=== PATIENT | female | born 1960 | race Caucasian/White ===

== ENCOUNTER 2018-02-06 09:55 | Emergency (ER) | payer OTHER, SELFPAY ==
--- NOTE | 2018-02-06 10:33 | RAD REPORT ---
EXAM DESCRIPTION: RAD - Knee Right 3 View - 02/06/2018 10:24 am CLINICAL HISTORY: Pain and swelling. COMPARISON: None. 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 On the oblique view, the re is a lucency seen involving the tibial plateau laterally. This is not confirmed on other projectio ns, however, is somewhat suspicious for hairline fracture, although artifact is possible. Small supra patellar joint effusion is present. Consider followup CT or MR imaging of the knee for further evalua tion.
--- NOTE | 2018-02-06 10:38 | ER ---
Nurse's Notes [facility] Name: Perlita Simons Age: 57 yrs Sex: Female : 1960 Arrival Date: 02/06/2018 Time: 09:58 Bed 18 Private MD: Romero Sheets S Diagnosis: Sprain of unspecified site of right knee Presentation: 02/06 10:01 Presenting complaint: Patient states: I was mowing yesterday and twisted my right knee, la1 pt ambulatory with limping gait. Transition of care: patient was not received from another setting of care. Onset of symptoms was February 06, 2018. Care prior to arrival: None. 10:01 Method Of Arrival: Ambulatory la1 10:01 Acuity: MILLICENT 4 la1 Historical: - Allergies: 10:02 Morphine; la1 - PMHx: 10:02 Back pain; Depression; Hypertension; insomnia; Migraines; la1 - Immunization history:: Adult Immunizations up to date. - Social history:: Smoking status: Patient/guardian denies using tobacco. Screenin:05 Abuse screen: Denies threats or abuse. Nutritional screening: No deficits noted. ae1 Tuberculosis screening: No symptoms or risk factors identified. Fall Risk None identified. No fall in past 12 months (0 pts). No secondary diagnosis (0 pts). No IV (0 pts). Ambulatory Aid- None/Bed Rest/Nurse Assist (0 pts). Gait- Normal/Bed Rest/Wheelchair (0 pts) Mental Status- Oriented to own ability (0 pts). Assessment: 10:15 General: Appears in no apparent distress. uncomfortable, obese, Behavior is calm, ae1 cooperative. Pain: Complains of pain in lateral aspect of right knee, posterior aspect of right knee, medial aspect of right knee and right knee. Pain: Aggravated by increased activity, weight bearing. Neuro: Level of Consciousness is awake, alert, obeys commands, Oriented to person, place, time, situation. Cardiovascular: Patient's skin is warm and dry. Respiratory: Airway is patent Respiratory effort is even, unlabored, Respiratory pattern is regular, symmetrical. GI: No signs and/or symptoms were reported involving the gastrointestinal system. : No signs and/or symptoms were reported regarding the genitourinary system. EENT: No signs and/or symptoms were reported regarding the EENT system. Derm: Skin is normal. Musculoskeletal: Swelling present in right knee. Vital Signs: 10:02 BP 94 / 57; Pulse 61; Resp 19; Temp 98.3(O); Pulse Ox 100% on R/A; Weight 104.33 kg; la1 Height 5 ft. 3 in. (160.02 cm); 10:44 BP 127 / 71; Pulse 58; Resp 17; Pulse Ox 98% on R/A; mh5 10:02 Body Mass Index 40.74 (104.33 kg, 160.02 cm) la1 ED Course: 09:58 Patient arrived in ED. mr 09:58 Romero Sheets MD is Private Physician. mr 10:01 Triage completed. la1 10:02 Arm band placed on left wrist. la1 10:04 Kika Heller FNP-C is [facility]. kb 10:04 Manuel Hernandez MD is Attending Physician. kb 10:08 John Cox, WILTON is Primary Nurse. ae1 10:14 X-ray completed. Portable x-ray completed in exam room. Patient tolerated procedure sw well. 10:15 Bed in low position. Call light in reach. Side rails up X 1. Pulse ox on. NIBP on. ae1 10:17 Knee Right 3 View XRAY In Process Unspecified. EDMS 10:58 Crutch training done. Knee immobilizer applied on right knee. 5 11:06 No provider procedures requiring assistance completed. Patient did not have IV access ae1 during this emergency room visit. Administered Medications: No medications were administered Outcome: 10:38 Discharge ordered by . kb 11:06 Discharged to home via wheelchair, with crutches provided ae1 11:06 Condition: stable 11:06 Discharge instructions given to patient, Instructed on discharge instructions, follow up and referral plans. medication usage, Demonstrated understanding of instructions, follow-up care, Prescriptions given X 1. 11:07 Patient left the ED. ae1 Signatures: Dispatcher [employer] EDMS Kika Heller FNP-C FNP-Iris Ivey Rios Freeman RN RN la1 Savannah Ortiz Andrea, WILTON RN ae1 Iris Dubon [facility]
--- NOTE | 2018-02-06 10:38 | EDPHYS ---
Physician Documentation [facility] Name: Perlita Simons Age: 57 yrs Sex: Female : 1960 Arrival Date: 02/06/2018 Time: 09:58 Bed 18 Private MD: Romero Sheets S ED Physician Manuel Hernandez HPI: 02/06 10:21 This 57 yrs old Female presents to ER via Ambulatory with complaints of Knee kb Pain. 10:21 The patient presents with pain, that is acute. The complaints affect the right knee. kb Context: The problem was sustained at home, outdoors, resulted from twisting of the extremity, mowing, the patient can fully bear weight, the patient is able to ambulate. Onset: The symptoms/episode began/occurred yesterday. Modifying factors: The symptoms are alleviated by nothing. the symptoms are aggravated by movement, weight bearing, bending knee. Associated signs and symptoms: The patient has no apparent associated signs or symptoms. Treatment prior to arrival includes: no previous treatment. Severity of symptoms: At their worst the symptoms were moderate, in the emergency department the symptoms are unchanged. The patient has not experienced similar symptoms in the past. The patient has not recently seen a physician. Historical: - Allergies: 10:02 Morphine; la1 - PMHx: 10:02 Back pain; Depression; Hypertension; insomnia; Migraines; la1 - Immunization history:: Adult Immunizations up to date. - Social history:: Smoking status: Patient/guardian denies using tobacco. ROS: 10:21 Constitutional: Negative for fever, chills, and weight loss, Cardiovascular: Negative kb for chest pain, palpitations, and edema, Respiratory: Negative for shortness of breath, cough, wheezing, and pleuritic chest pain, Abdomen/GI: Negative for abdominal pain, nausea, vomiting, diarrhea, and constipation, Skin: Negative for injury, rash, and discoloration, Neuro: Negative for headache, weakness, numbness, tingling, and seizure. 10:21 MS/extremity: Positive for pain, of the right knee. Exam: 10:20 Constitutional: This is a well developed, well nourished patient who is awake, alert, kb and in no acute distress. Head/Face: Normocephalic, atraumatic. Chest/axilla: Normal chest wall appearance and motion. Nontender with no deformity. No lesions are appreciated. Cardiovascular: Regular rate and rhythm with a normal S1 and S2. No gallops, murmurs, or rubs. Normal PMI, no JVD. No pulse deficits. Respiratory: Lungs have equal breath sounds bilaterally, clear to auscultation and percussion. No rales, rhonchi or wheezes noted. No increased work of breathing, no retractions or nasal flaring. Abdomen/GI: Soft, non-tender, with normal bowel sounds. No distension or tympany. No guarding or rebound. No evidence of tenderness throughout. Skin: Warm, dry with normal turgor. Normal color with no rashes, no lesions, and no evidence of cellulitis. Neuro: Awake and alert, GCS 15, oriented to person, place, time, and situation. Cranial nerves II-XII grossly intact. Motor strength 5/5 in all extremities. Sensory grossly intact. Cerebellar exam normal. Normal gait. 10:20 Musculoskeletal/extremity: Extremities: grossly normal except: noted in the right knee: pain, ROM: intact in all extremities, Circulation is intact in all extremities. Sensation intact. Weight bearing: able to fully bear weight. Vital Signs: 10:02 BP 94 / 57; Pulse 61; Resp 19; Temp 98.3(O); Pulse Ox 100% on R/A; Weight 104.33 kg; la1 Height 5 ft. 3 in. (160.02 cm); 10:44 BP 127 / 71; Pulse 58; Resp 17; Pulse Ox 98% on R/A; mh5 10:02 Body Mass Index 40.74 (104.33 kg, 160.02 cm) la1 MDM: 10:04 Patient medically screened. kb 10:20 Data reviewed: vital signs, nurses notes. Data interpreted: Pulse oximetry: on room air kb is 100 %. Interpretation: normal. 10:21 Counseling: I had a detailed discussion with the patient and/or guardian regarding: the kb historical points, exam findings, and any diagnostic results supporting the discharge/admit diagnosis, radiology results, the need for outpatient follow up, a orthopedic surgeon, to return to the emergency department if symptoms worsen or persist or if there are any questions or concerns that arise at home. 10:39 ED course: Pt did not have any trauma to knee. Not tender to distal aspect of knee. kb Tenderness to proximal aspect of knee only. Educated to follow up with ortho for possible hairline fracture noted by radiologist. . 02/06 10:04 Order name: Knee Right 3 View XRAY; Complete Time: 10:34 kb 02/06 10:37 Order name: Knee Immobilizer; Complete Time: 10:52 kb 02/06 10:37 Order name: Crutches; Complete Time: 10:52 kb Administered Medications: No medications were administered Disposition: 15:23 Co-signature as Attending Physician, Manuel Hernandez MD I agree with the assessment and wa plan of care. Disposition: 02/06/18 10:38 Discharged to Home. Impression: Sprain of unspecified site of right knee. - Condition is Stable. - Discharge Instructions: Knee Sprain, [id number]. - Prescriptions for Diclofenac Sodium 75 mg Oral Tablet, Delayed Release (E.C.) - take 1 tablet by ORAL route 2 times per day As needed; 30 tablet. - Medication Reconciliation Form, Thank You Letter, Antibiotic Education, Prescription Opioid Use form. - Follow up: Emergency Department; When: As needed; Reason: Worsening of condition. Follow up: Private Physician; When: 2 - 3 days; Reason: Recheck today's complaints, Continuance of care, Re-evaluation by your physician. Signatures: Dispatcher [employer] EDKika Rodriguez, DIVYA-C CHIEF JUVENILE [employer]ATION OFFICER-CkRios Stokes RN RN la1 John Cox RN RN ae1 Manuel Hernandez MD MD wa Corrections: (The following items were deleted from the chart) 10:40 10:39 ED course: Pt did not have any trauma to knee. Not tender to distal aspect of kb knee. Tenderness to proximal aspect of knee only. . kb
[2018-02-06 11:20] VITALS: TEMP 98.3
[2018-02-06 11:21] VITALS: BP 127/71; O2SAT 98
== END 2018-02-06 11:07 | disposition home or self-care (01) ==
LOC: ER 09:55
DX: S83.91XA Sprain of unspecified site of right knee, initial encounter (principal); X58.XXXA Exposure to other specified factors, initial encounter; Y93.89 Activity, other specified; Y92.007 Garden or yard of unspecified non-institutional (private) residence as the place of occurrence of the external cause; Z88.6 Allergy status to analgesic agent
CPT/HCPCS: 99284

== ENCOUNTER 2022-04-10 10:39 | Day surgery (SDC) | payer MEDICARE, OTHER ==
[2022-04-10] MEDS ORDERED: Ringers Lactate 1,000 ML IV ONE (11:15)
[2022-04-10] MEDS ORDERED: LIDOCAINE 1% MPF 5 ML VIAL ONE ×4 (11:18→12:14)
[2022-04-10] MEDS ORDERED: DEPO-MEDROL 40 MG/ML IM ONE (11:18)
[2022-04-10] MEDS ORDERED: BUPIVACAINE 0.25% PF 10 ML VIAL ONE (11:18)
[2022-04-10] MEDS ORDERED: TRIAMCINOLONE ACETON 40 MG/ML VIAL ONE (11:33)
[2022-04-10] MEDS ORDERED: FENTANYL CITR 100 MCG/2 ML ONE (12:14)
[2022-04-10] MEDS ORDERED: propofoL 200 MG/20 ML VIAL IV ONE ×2 (12:14→12:58)
[2022-04-10] MEDS ORDERED: ONDANSETRON 4 MG/2 ML VIAL ONE (12:14)
[2022-04-10] MEDS ORDERED: MIDAZOLAM HCL 2 MG/2 ML INJ ONE (12:14)
[2022-04-10] MEDS ORDERED: NS 0.9% VIAL 0 ML ONE (12:31)
[2022-04-10 13:56] VITALS: BP 130/66; TEMP 97.5; O2SAT 99
--- NOTE | 2022-04-10 16:18 | RAD REPORT ---
EXAM DESCRIPTION: RAD - Fluoro Guide Spinal Inj - 04/10/2022 2:30 pm CLINICAL HISTORY: LUMBAR INJ COMPARISON: No comparisons FINDINGS/IMPRESSION: Two fluoroscopic images were submitted showing placement of 6 spinal needles fo r purposes of lumbar injection. Cumulative dose: 4.35 mGy Fluoro time: 0.5 minutes
== END 2022-04-10 13:50 | disposition home or self-care (01) ==
LOC: OR 10:39
PROVIDERS: ATTEND Pain Medicine Interventional Pain Medicine
PROC: B01BZZZ Fluoroscopy of Spinal Cord (ICD-10-PCS; 2022-04-10)
PROC: 3E0R3BZ Introduction of Anesthetic Agent into Spinal Canal, Percutaneous Approach (ICD-10-PCS; principal; 2022-04-10 12:30)
DX: M47.816 Spondylosis without myelopathy or radiculopathy, lumbar region (principal); M54.50 Low back pain, unspecified; M54.16 Radiculopathy, lumbar region; M60.9 Myositis, unspecified; G89.4 Chronic pain syndrome; F41.8 Other specified anxiety disorders; N19 Unspecified kidney failure; Z88.6 Allergy status to analgesic agent; Z20.822 Contact with and (suspected) exposure to COVID-19
CPT/HCPCS: 62323; 77003; U0003; J2704 ×2; J3301; J2250; J7120; J1030; J2405; J3010

== ENCOUNTER → 2025-02-18 | Day surgery (SDC) | payer OTHER ==
--- NOTE | 2025-02-18 11:54 | RAD REPORT ---
Exam: THYROID NODULE FNA PREPROCEDURE DIAGNOSIS: Right thyroid nodule. E04.1 PROCEDURE: Right thyroid nodule FNA. SPECIMEN: 5 - 25-gauge FNA specimens of the right thyroid nodule. TECHNIQUE: Prior to the procedure , the risks and benefits of a thyroid FNA were explained with the patient amol aguilar consented fully to the procedure. Real-time ultrasound was used to identify the right thyroid nodule. The neck was then prepped and victoria ped in the usual sterile fashion. Lidocaine was used to anesthetize the skin and soft tissues down towards the thyroid nodule. 5 separa te 25-gauge needles were then placed using ultrasound guidance into the nodule and specimen was obtained within the needle using a to and fro motion. These needles were placed in solution provided by pathology. The patient tolerated the procedure well without immediate post procedure complication. IMPRESSION: Ultrasound-guided fine-needle aspiration right thyroid nodule
== END ==
LOC: FNA 09:41
PROVIDERS: ATTEND Nurse Practitioner Family
PROC: 0GBH3ZX Excision of Right Thyroid Gland Lobe, Percutaneous Approach, Diagnostic (ICD-10-PCS; principal; 2025-02-18)
DX: E04.1 Nontoxic single thyroid nodule (principal)
CPT/HCPCS: 88162; 88305